=== PATIENT | female | born 1945 | race Caucasian/White ===

== ENCOUNTER 2016-09-18 20:51 | Emergency (ER) | payer MEDICARE, OTHER ==
[~2016-09-18] VITALS: Ht 162.6 cm; Wt 61.2 kg
--- NOTE | 2016-09-18 21:22 | NUR ---
DR DUPONT INTO SUTURE PATIENT
[2016-09-18] MEDS ORDERED: LIDOCAINE HCL 1% 20 ML VIAL TP ONE (21:45)
[2016-09-18] MEDS ORDERED: TDAP DIPH,PERTUSS,TET VAC/PF 0.5 ML DISP.SYRIN IM ONE ×2 (21:45→21:51)
--- NOTE | 2016-09-18 21:56 | NUR ---
Patient discharged to home in stable conditon WITH DAUGHTER TAKING PT HOME. Written and verbal after care instructions given. Patient verbalizes understanding of instructions. WALKED OUT OF ER WITH STEADY GAIT
== END 2016-09-18 21:57 | disposition home or self-care (01) ==
LOC: ER 20:51
DX: S51.811A Laceration without foreign body of right forearm, initial encounter (principal); E11.9 Type 2 diabetes mellitus without complications; W25.XXXA Contact with sharp glass, initial encounter; Y93.89 Activity, other specified; Y99.8 Other external cause status; Y92.89 Other specified places as the place of occurrence of the external cause
CPT/HCPCS: 12002; 90471; 90715; 99283; A4663; J3490

== ENCOUNTER 2016-09-21 15:40 | Emergency (ER) | payer MEDICARE, OTHER ==
[~2016-09-21] VITALS: Ht 172.7 cm; Wt 77.1 kg
[2016-09-21] MEDS ORDERED: [UNRECOGNIZED DRUG - OTHER] (15:52)
[2016-09-21] MEDS ORDERED: INSULIN GLARGINE (15:52)
[2016-09-21] MEDS ORDERED: METF500T4 PO (15:52)
[2016-09-21] MEDS ORDERED: SIMV40TA2 PO (15:52)
[2016-09-21] MEDS ORDERED: [UNRECOGNIZED DRUG - REMARK] (15:52)
--- NOTE | 2016-09-21 15:59 | NUR ---
PT WAS D/C TO HOME. D/C INSTRUCTIONS GIVEN TO THE PT.
[2016-09-21 16:03] VITALS: BP 125/73
== END 2016-09-21 16:04 | disposition home or self-care (01) ==
LOC: ER 15:43
DX: S51.811D Laceration without foreign body of right forearm, subsequent encounter (principal); E11.9 Type 2 diabetes mellitus without complications; Z79.4 Long term (current) use of insulin; X58.XXXD Exposure to other specified factors, subsequent encounter; Y92.89 Other specified places as the place of occurrence of the external cause; Y99.8 Other external cause status
CPT/HCPCS: 99281; A4663

== ENCOUNTER 2016-09-28 15:51 | Emergency (ER) | payer MEDICARE, OTHER ==
[~2016-09-28] VITALS: Ht 172.7 cm; Wt 77.1 kg
[~2016-09-28 15:51] MED LIST: INSULIN GLARGINE; METF500T4 PO; SIMV40TA2 PO; [UNRECOGNIZED DRUG - OTHER]; [UNRECOGNIZED DRUG - REMARK]
--- NOTE | 2016-09-28 16:08 | NUR ---
Patient discharged to home in stable conditon. Written and verbal after care instructions given. Patient verbalizes understanding of instructions.
== END 2016-09-28 16:09 | disposition home or self-care (01) ==
LOC: ER 15:54
DX: S51.811D Laceration without foreign body of right forearm, subsequent encounter (principal); E11.9 Type 2 diabetes mellitus without complications; Z79.4 Long term (current) use of insulin; X58.XXXD Exposure to other specified factors, subsequent encounter; Y99.8 Other external cause status; Y92.89 Other specified places as the place of occurrence of the external cause
CPT/HCPCS: A4663

== ENCOUNTER 2022-06-18 07:48 | Outpatient (CLI) | payer MEDICARE, OTHER ==
[~2022-06-18 07:48] MED LIST changes: +METF-440 PO; -METF500T4 PO
== END 2022-06-18 23:59 | disposition home or self-care (01) ==
LOC: LAB 07:48
PROVIDERS: ATTEND Orthopaedic Surgery
DX: Z01.818 Encounter for other preprocedural examination (principal); Z20.822 Contact with and (suspected) exposure to COVID-19

== ENCOUNTER 2022-06-20 09:11 | Day surgery (SDC) | payer MEDICARE, OTHER ==
[2022-06-20] MEDS ORDERED: HYDROMORPHONE 2 MG/1 ML DISP.SYRIN ONE (11:28)
[2022-06-20] MEDS ORDERED: BUPIVACAINE/EPI PF 0.25% 10 ML VIAL IJ ONE (12:36)
[2022-06-20] MEDS ORDERED: HYDROMORPHONE 1 MG/1 ML DISP.SYRIN ONE (13:04)
[2022-06-20] MEDS ORDERED: ONDANSETRON 4 MG/2 ML VIAL ONE ×2 (13:43→13:50)
[2022-06-20] MEDS ORDERED: KETOROLAC TROMETHAMINE 30 MG INJ ONE (13:50)
[2022-06-20] MEDS ORDERED: CEFAZOLIN 1 G VIAL ONE (13:50)
[2022-06-20] MEDS ORDERED: LIDOCAINE-MPF 2% 5 ML VIAL ONE (13:50)
[2022-06-20] MEDS ORDERED: DEXAMETHASONE SOD PHOSPHATE 4 MG INJ ONE (13:50)
[2022-06-20] MEDS ORDERED: PROPOFOL 200 MG/20 ML BOTTLE ONE (13:50)
[2022-06-20] MEDS ORDERED: ACETAMINOPHEN/CODEINE 300-30 MG TABLET ONE (14:46)
== END 2022-06-20 15:25 | disposition home or self-care (01) ==
LOC: DS 09:11
PROVIDERS: ATTEND Orthopaedic Surgery
DX: S83.242A Other tear of medial meniscus, current injury, left knee, initial encounter (principal); M94.261 Chondromalacia, right knee; I10 Essential (primary) hypertension; E03.9 Hypothyroidism, unspecified; E78.5 Hyperlipidemia, unspecified; E11.40 Type 2 diabetes mellitus with diabetic neuropathy, unspecified; Z79.84 Long term (current) use of oral hypoglycemic drugs; Z79.899 Other long term (current) drug therapy; Z98.890 Other specified postprocedural states; X58.XXXA Exposure to other specified factors, initial encounter; Y93.89 Activity, other specified; Y92.89 Other specified places as the place of occurrence of the external cause; Y99.8 Other external cause status
CPT/HCPCS: 29881; 97161; 97530; 97110; 97116; 82962 ×2; J3490 ×2; J0690; J1100; J1885; J2405 ×2; J1170 ×2; J7040; A4663